=== PATIENT | male | born 2000 | race Caucasian/White ===

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

== ENCOUNTER → 2018-05-18 | Emergency (ER) | payer OTHER | END | disposition home or self-care (01) | LOC: FTE 20:54 | DX: S83.92XA Sprain of unspecified site of left knee, initial encounter (principal); J45.909 Unspecified asthma, uncomplicated; X58.XXXA Exposure to other specified factors, initial encounter; Y92.9 Unspecified place or not applicable | CPT/HCPCS: 73562; 73610; 73630-LT; 99283-25 ==